=== PATIENT | female | born 1950 ===

== ENCOUNTER 2017-08-13 08:15 | Day surgery (SDC) | payer MEDICARE ==
[~2017-08-13] VITALS: Ht 172.7 cm; Wt 70.5 kg
[~2017-08-13 08:15] MED LIST: ESTROGEN; LORPSEER12; [UNRECOGNIZED DRUG - REMARK]
== END 2017-08-13 11:06 | disposition home or self-care (01) ==
LOC: ORSCSDS 08:15
PROVIDERS: Internal Medicine Gastroenterology
PROC: 0DBK8ZX Excision of Ascending Colon, Via Natural or Artificial Opening Endoscopic, Diagnostic (ICD-10-PCS; principal; 2017-08-13 09:45)
DX: Z12.11 Encounter for screening for malignant neoplasm of colon (principal); D12.2 Benign neoplasm of ascending colon
CPT/HCPCS: 88305; J7040; J7120